=== PATIENT | female | born 1970 | race Caucasian/White ===

== ENCOUNTER 2024-12-14 23:07 | Emergency (ER) | payer BC, SELFPAY ==
[2024-12-14 23:09] VITALS: BP 165/94
--- NOTE | 2024-12-14 23:50 | ED.GENMED ---
History of Present Illness
General
Chief Complaint: Musculo-Skeletal Complaint
Source: patient
Exam Limitations: none
Time Seen by Provider: 12/14/24 23:46
Nursing documentation reviewed up to this point in time: agreed with
History of Present Illness
History of Present Illness:
HPI:
54-year-old female with a past medical history of PCOS who presents emergency department today with concerns of a ring stuck on her third finger for the past day and a half. Patient reports that she has a large ring that she normally wears on her
fourth finger, however she went to go walk her dog and so she placed it on her middle finger so it would not fall off. When she got back from walking a dog, she tried to remove the ring and noticed that it would not come off. She tried using
antibiotic ointment which did not help. She went to urgent care and they tried using a ring cutter to remove the ring but cannot cut through the ring due to its thickness. Patient reports that she has had increasing pain in her finger and notes
mild tingling sensation but denies loss of sensation.
EXAM:
General: Patient is well appearing and in no acute distress; non-toxic
Skin: Warm and dry, no rashes or lesions. Brisk capillary refill
Head: Normocephalic, atraumatic
Eyes: Sclera non-icteric. EOMs intact.
Cardiac: Regular rate
Pulm: Normal respiratory effort
Musculoskeletal: Full range of motion of right third finger, 5 out of 5 strength
Neuro: CN II-XII intact, no focal neurologic deficits. Sensation intact
Psychiatric: Appropriate mood and affect.
ED COURSE:
First attempted to remove ring with lubrication and pressure I was not successful. Then used suture method and wrap suture around finger to try to remove the ring which was unsuccessful. My attending physician used larger piece of blanket tie to
remove the ring which was successful.
NUMBER AND COMPLEXITY OF PROBLEMS ADDRESSED AT THE ENCOUNTER
� Chronic conditions affecting care: PCOS, uterine fibroids
� Acute Exacerbation and/or Progression of Chronic Illness:
� Differential Diagnosis includes: Ring stuck on finger
AMOUNT AND/OR COMPLEXITY OF DATA TO BE REVIEWED AND ANALYZED
� I performed an independent evaluation of and my interpretation is:
No indication for imaging studies or ECG
Laboratory Studies: No indication for blood work
Other:
� Review of other/old records: Reviewed ER physician documentation from 05/25/2017 patient seen for acute vertigo and was discharged with unremarkable workup
� Clinical information was obtained by an independent historian: N/A
� Prescriptions/Medications Considered but not given: N/A
� Further testing considered but not performed: No indication for x-ray imaging at this time
RISK OF COMPLICATIONS AND/OR MORBIDITY OR MORTALITY OF PATIENT MANAGEMENT
� Social determinants of health affecting care: None
� Discussion with other providers: ED attending
� Escalation of care including admission/observation vs risk of discharge considered:
54-year-old female presents emergency department today with concerns of a right stuck on her finger. This is removed using the string method. Patient was observed for period time and on reexamination, patient reports that her pain is much improved
and she no longer feels numbness and tingling. Capillary refill intact. Return precautions discussed. Patient stable for discharge.
Past History
Past History
ED Past Medical History: None
ED Past Surgical History: None
Social History
Tobacco: Non-smoker
Personal:
Living: with family
Family History
Family History: Other (Patient's father had kidney stones); Negative Diabetes, Hypertension, Early CAD, Asthma or Cancer
Phy Exam
Physical Exam
Physical Exam:
see hpi
Course
Vital Signs
Initial and Last Documented VS:
Initial Vital Signs
Temp Pulse Resp BP Pulse Ox
97.9 F 84 20 165/94 98
12/14/24 23:09 12/14/24 23:09 12/14/24 23:09 12/14/24 23:09 12/14/24 23:09
Last Documented Vital Signs
Temp Pulse Resp BP Pulse Ox
97.9 F 84 20 165/94 98
12/14/24 23:09 12/14/24 23:09 12/14/24 23:09 12/14/24 23:09 12/14/24 23:50
*Pulse Oximetry
SaO2: 98
Oxygen Mode of Delivery: Room air
Patient hypoxic: no
*Critical Care Note
Total Time (30-74mins, 75-104mins- exclusive of procedures): Not Applicable
ED Attending Note
-
Portions of this chart may have been created with voice recognition software.� Occasional wrong word or��sound alike� substitutions may have occurred due to the inherent limitations of voice recognition software.
Discharge Plan
Departure
Patient Disposition: Home (Routine Discharge)
Date of Disposition: 12/15/24
Time of Disposition: 00:19
Patient with high blood pressure during this ER visit?: Yes
Condition: Good
Discharge Problem:
Ring or other jewelry causing external constriction, initial encounter
Instructions: Common finger injuries, BLOOD PRESSURE
Prescriptions:
No Action
meclizine 25 MG tablet
25 mg PO TID Qty: 21 0RF
Referrals:
Stas Fabian DO [Family Provider, Family Practice]
Activity Restrictions/Additional Instructions:
Please follow-up with your primary care provider. Please continue to ice the area. Please return should she develop worsening pain, swelling, loss in sensation, or any other signs or symptoms worrisome to you.
Interventions
Interventions:
*Risk Screen - Suicide Last Done: 12/14/24 23:09
*General Assessment Last Done: 12/15/24 00:16
*Neglect/Abuse Screening Last Done: 12/15/24 00:16
*ED- Fall Risk Assessment Last Done: 12/15/24 00:16
*Nursing Disposition Last Done: 12/15/24 00:39
ED-Musculoskeletal Assessment Last Done: 12/15/24 00:16
Discharge Date and Time
Discharge Date/Time: 12/15/24 00:39
Print Language: [id number]
== END 2024-12-15 00:39 | disposition home or self-care (01) ==
LOC: EMR 23:07
PROVIDERS: EMERGENCY PHYSICIAN Student in an Organized Health Care Education/Training Program; FAMILY PHYSICIAN Family Medicine
DX: M79.644 Pain in right finger(s) (principal); R20.2 Paresthesia of skin; W49.04XA Ring or other jewelry causing external constriction, initial encounter; X58.XXXA Exposure to other specified factors, initial encounter; R03.0 Elevated blood-pressure reading, without diagnosis of hypertension; E28.2 Polycystic ovarian syndrome
CPT/HCPCS: 99282

== ENCOUNTER → 2025-03-26 15:03 | Outpatient (REF) | payer BC, SELFPAY | LOC: HWRAD 15:03 | PROVIDERS: ATTENDING PHYSICIAN Family Medicine | DX: K80.20 Calculus of gallbladder without cholecystitis without obstruction (principal) | CPT/HCPCS: 76700 ==

== ENCOUNTER → 2025-03-29 12:26 | Outpatient (REF) | payer BC, SELFPAY | LOC: HWRAD 12:26 | PROVIDERS: ATTENDING PHYSICIAN Family Medicine | DX: D25.1 Intramural leiomyoma of uterus (principal) | CPT/HCPCS: 76830; 76856 ==